=== PATIENT | female | born 1965 | race Caucasian/White ===

== ENCOUNTER 2024-10-03 09:40 | Emergency (ER) | payer BC, MEDICARE ==
[~2024-10-03] VITALS: Ht 167.6 cm; Wt 90.7 kg
[2024-10-03 10:07] LABS: BASOPHILS ABSOLUTE AUTO 0.08 K/mm3 (0.00-0.23); BASOPHILS PERCENT AUTO 1 % (0-2); EOSINOPHILS ABSOLUTE AUTO 0.19 K/mm3 (0.00-0.68); EOSINOPHILS PERCENT AUTO 2 % (0-6); Hemoglobin 15.2 g/dL (11.5-16.0); IMMATURE GRAN ABSOLUTE AUTO 0.03 K/mm3 (0.00-0.10); IMMATURE GRAN PERCENT AUTO 0 % (0-1); LYMPHOCYTES ABSOLUTE AUTO 2.75 K/mm3 (0.84-5.20); LYMPHOCYTES PERCENT AUTO 34 % (21-46); MONOCYTES ABSOLUTE AUTO 0.38 K/mm3 (0.16-1.47); MONOCYTES PERCENT AUTO 5 % (4-13); Mean Corpuscular HGB 34.2 pg (26.0-34.0); Mean Corpuscular HGB Conc 37.1 g/dL (31.5-36.5); Mean Corpuscular Volume 92 fL (80-100); Mean Platelet Volume 10.5 fL (9.1-12.4); NEUTROPHILS ABSOLUTE AUTO 4.62 K/mm3 (1.96-9.15); NEUTROPHILS PERCENT AUTO 57 % (41-73); Platelet Count 283 K/mm3 (150-400); RDW Coefficient Variation 14.3 % (11.7-14.2); RDW Standard Deviation 48.9 fL (35.1-46.3); Red Blood Cell Count 4.44 M/mm3 (3.80-5.20); White Blood Cell Count 8.05 K/mm3 (4.00-11.30)
[2024-10-03 10:15] LABS: Base Excess Venous -0.6 mmol/L; Bicarbonate Venous 24.4 mmol/L (24.0-30.0); PCO2 Venous 33.7 mmHg (38-42); pH Blood Venous 7.45 (7.34-7.37)
[2024-10-03] MEDS ORDERED: Ondansetron HCl 2 MG / ML 2ML Vial IV ONE (10:35)
[2024-10-03 10:57] LABS: Source, Urine Clean Catch
[2024-10-03 11:11] LABS: Appearance, Urine Clear (Clear); Bilirubin, Urine Neg (Neg); Blood, Urine Neg (Neg); Color, Urine Yellow (P-Yellow); Glucose Qualitative, Urine 4+ (Neg); Ketones, Urine Neg (Neg); Leukocyte Esterase, Urine Neg (Neg); Nitrite, Urine Neg (Neg); Protein, Urine 2+ (Neg); Urobilinogen, Urine NORM (Normal)
[2024-10-03 11:17] LABS: Bacteria Few /hpf; Red Blood Cells, Urine 0-2 /hpf (0-2); Squamous Epithelial Cells Few /hpf (Few); White Blood Cells, Urine 0-2 /hpf (0-5)
[2024-10-03 11:23] LABS: U Amphetamine Screen DETECTED; U Barbituate Screen Not Detected; U Benzodiazapine Screen Not Detected; U Buprenorphine Screen Not Detected; U Cannabinoids Screen Not Detected; U Cocaine Screen Not Detected; U Methadone Screen Not Detected; U Methamphetamine Screen DETECTED; U Opiates Screen Not Detected; U Oxycodone Screen Not Detected; U Phencyclidine Screen Not Detected
[2024-10-03 11:50] LABS: Beta-hydroxybutyrate 1.8 mg/dL (0.2-2.8); Ethanol (Alcohol), Blood, Med 5 mg/dL; Magnesium, Blood 2.1 mg/dL (1.6-2.4)
[2024-10-03] MEDS ORDERED: Metoclopramide HCl 5MG / ML 2ML Vial IV ONE (12:10)
[2024-10-03 12:24] LABS: Alanine Aminotransfer (ALT/SGP 85 U/L (12-78); Albumin, Blood 3.9 g/dL (3.4-5.0); Albumin/Globulin Ratio 0.9 (0.8-1.8); Alk Phos 135 U/L (50-136); Anion Gap 17 mmol/L (3-11); Aspartate Aminotrans (AST/SGOT 91 U/L (12-37); Bilirubin, Direct <0.1 mg/dL (0.0-0.3); Bilirubin, Indirect Unable to Calculate mg/dL (0.1-0.7); Bilirubin, Total 0.5 mg/dL (0.1-1.0); Blood Urea Nitrogen 10 mg/dL (8-24); Bun/Creatinine Ratio 11.2 (12.0-20.0); CO2, Blood 20 mmol/L (21-32); Calcium, Blood 8.3 mg/dL (8.5-10.1); Chloride, Blood 100 mmol/L (98-108); Globulin, Blood 4.2 g/dL (2.2-4.0); Glomerular Filtration Rate 75 (60-); Glucose, Blood 396 mg/dL (70-99); Phosphorus, Blood 3.7 mg/dL (2.5-4.9); Potassium, Blood 4.6 mmol/L (3.5-5.5); Sodium, Blood 132 mmol/L (136-145); Total Protein, Blood 8.1 g/dL (6.4-8.2)
[2024-10-03] MEDS ORDERED: Insulin Regular 100 Unit/ML 1ML Dose IV ONE (15:40)
== END 2024-10-03 16:22 | disposition home or self-care (01) ==
LOC: ER 09:40
PROVIDERS: Student in an Organized Health Care Education/Training Program
DX: E11.65 Type 2 diabetes mellitus with hyperglycemia (principal); R74.01 Elevation of levels of liver transaminase levels; E03.9 Hypothyroidism, unspecified
CPT/HCPCS: 71046; 74177; 80053; 80320; 81001; 82010; 82248; 82803; 82947; 83735; 84100; 85025; 93005; 93010; 96374-59; 96375; 99285-25; J1815; J2405; J2765; Q9967